=== PATIENT | female | born 1970 | race Native Hawaiian/Other Pacific Islander ===

== ENCOUNTER 2018-09-12 07:10 | Day surgery (SDC) | payer OTHER ==
[2018-09-12 08:19] VITALS: BMI 28.7
[2018-09-12] MEDS ORDERED: Lidocaine 2% MPF (5 ml) Inj ONE (08:44)
[2018-09-12] MEDS ORDERED: Midazolam 2 MG/2 ML VIAL ONE (08:45)
[2018-09-12 10:31] LABS: ARTERIAL BLOOD GAS PCO2 42 mm/Hg (35-45); ARTERIAL BLOOD GAS PH 7.42 (7.35-7.45)
[2018-09-12 10:32] LABS: ARTERIAL BLOOD GAS HCO3 26.7 mmol/L (21-28); ARTERIAL BLOOD GAS O2 SAT 96.5 % (95-98); ARTERIAL BLOOD GAS PO2 73 mm/Hg (80-100); ARTERIAL BLOOD GAS TCO2 28.5 mmol/L (22-28)
[2018-09-12 10:33] LABS: VENOUS BLOOD GAS PCO2 38 mmHg (40-60); VENOUS BLOOD GAS PO2 39 mm/Hg (30-55); VENOUS BLOOD PH 7.38 (7.32-7.43)
[2018-09-12 10:34] LABS: VENOUS BLOOD GAS BASE EXCESS -2.3 mmol/L (0.0-2.0)
--- NOTE | 2018-09-12 14:17 | CARDCATH ---
PROCEDURE DATE: 09/12/2018 INDICATIONS: Ms. Zhang is a 48-year-old female with known history of cardiomyopathy, who presented with worsening CHF exacerbation, acute decompensated heart failure. She was being evaluated for possible ICD and prior cardiac catheterization about 2 years ago had revealed a moderate LAD stenosis. She was brought to the record label internship for evaluation of her underlying etiology of her heart failure. She was somewhat noncompliant with her medications and the patient was being evaluated for hemodynamics for CHF along with coronary anatomy, which had revealed a moderate LAD stenosis. PROCEDURES PERFORMED: 1. Complete heart catheterization with selective left and right coronary angiogram, left ventriculogram, and right heart catheterization with hemodynamic and saturation. 2. Right heart cath findings; RA pressure 11/9 with a mean of 8, RV pressure 39/5 with RVEDP of 8, pulmonary capillary wedge pressure mean of 12, PA pressure 34/80 with a mean of 23. Left ventricular end diastolic pressure was 21 with DP/DT of 768. Using the Richardson equation, cardiac output was calculated to be 3.63 with a cardiac index of 2.22 liters per minute per square meter area. Coronary anatomy; left main is a large-sized vessel, bifurcates into left anterior descending and left circumflex coronary artery. Left main is free of any obstructive disease. Left anterior descending; large-sized vessel, gives off 2 small-sized diagnosed branches, mid LAD has a nonobstructive 50% stenosis. any obstructive disease. Left circumflex runs in the AV groove, gives off a large-sized obtuse marginal branch distally. It gives off a small obtuse marginal branch. Left circumflex has a mid nonobstructive 40% stenosis. Obtuse marginal is free of any obstructive disease. RCA; large size vessel, free of any obstructive disease. Proximal and distal 0%. Left ventricular ejection fraction of 20%-25%. EDP of 21. IMPRESSION: Normal filling pressures, mild nonobstructive coronary artery disease, and severe cardiomyopathy. RECOMMENDATIONS: Guideline-directed therapy for CHF. Consider AICD placement. EP evaluation is done. Brandon Gandhi MD
== END 2018-09-12 13:00 | disposition left against medical advice (07) ==
LOC: C.CATHLAB 07:10
PROVIDERS: ATTEND Internal Medicine Interventional Cardiology
DX: I42.9 Cardiomyopathy, unspecified (principal); I50.9 Heart failure, unspecified; Z91.14 Patient's other noncompliance with medication regimen; I25.10 Atherosclerotic heart disease of native coronary artery without angina pectoris
CPT/HCPCS: 82803; 84703; 93460; 99152; 99153; C1714; C1760; C1769; C1887; C1893; C1894; J1644; J2250; J3010